=== PATIENT | male | born 1975 | race Caucasian/White ===

== ENCOUNTER → 2023-03-12 08:32 | Outpatient (BNVA) | payer OTHER, SELFPAY | PROVIDERS: Family Provider Family Medicine; PCP Family Medicine; Visit Provider Family Medicine | DX: E53.8 Deficiency of other specified B group vitamins (principal); R53.83 Other fatigue; R53.81 Other malaise; Z13.220 Encounter for screening for lipoid disorders; E55.9 Vitamin D deficiency, unspecified | CPT/HCPCS: 80053; 80061; 82306; 82607; 84443; 85025 ==

== ENCOUNTER 2024-07-04 09:19 | Emergency (ER) | payer OTHER, SELFPAY ==
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
[2024-07-04 09:25] VITALS: BP 148/83; PULSE 71; RESP 20; TEMP 36.6; O2SAT 97
[2024-07-04] MEDS: tetanus-dipt-pertussis 0.5 mL SDV IM (09:50)
[2024-07-04] MEDS: ceFAZolin 2,000 mg SDV 2000 MG IVP (09:50)
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
[2024-07-04 10:27] VITALS: BP 140/73; PULSE 81; O2SAT 98
--- NOTE | 2024-07-05 08:52 | DCPLANNER ---
messaged ortho for er f/u
== END 2024-07-04 10:33 | disposition home or self-care (01) ==
PROVIDERS: Emergency Provider Emergency Medicine; Family Provider Family Medicine; PCP Family Medicine
DX: S61.411A Laceration without foreign body of right hand, initial encounter (principal); X58.XXXA Exposure to other specified factors, initial encounter
CPT/HCPCS: 12002; 73130; 90471; 90715; 96374; 99284; J0690

== ENCOUNTER 2024-12-25 07:25 | Observation (INO) | payer OTHER, SELFPAY ==
[2024-12-25] VITALS (17 sets, daily range): BP systolic 112–182; BP diastolic 58–105; PULSE 79–96; RESP 15–19; TEMP 36.6–37.6; O2SAT 95–100; BMI 27.8
--- NOTE | 2024-12-25 07:50 | CTR_ITS ---
PROCEDURE INFORMATION: Exam: CT Pelvis With Contrast Exam date and time: 12/25/2024 8:02 AM Age: 49 years old Clinical indication: Other: Perirectal abscess; Perianal pain; Additional info: Perirectal abscess anterior TECHNIQUE: Imaging protocol: Computed tomography of the pelvis with contrast. Radiation optimization: All CT scans at this facility use at least one of these dose optimization techniques: automated exposure control; mA and/or kV adjustment per patient size (includes targeted exams where dose is matched to clinical indication); or iterative reconstruction. Contrast material: OMNIPAQUE 350; Contrast volume: 100 ml; Contrast route: INTRAVENOUS (IV); COMPARISON: No relevant prior studies available. RADIATION DOSE METRICS: Total DLP (mGy-cm): 397.3 FINDINGS: Intestine: Visualized small and large intestine are unremarkable. There is an ill-defined fluid in the right perianal region measuring 3.1 x 2.6 x 1.7 cm with surrounding fat stranding. No organized rim enhancing collection. Appendix: No evidence of appendicitis. Intraperitoneal space: Unremarkable. No free air. No significant fluid collection. Vasculature: There are numerous benign phleboliths in the pelvis. Lymph nodes: Unremarkable. No enlarged lymph nodes. Reproductive: Normal as visualized. Urinary bladder: Normal. No mass. Bones/joints: There are mild degenerative changes of the sacroiliac joints. There are mild degenerative changes of the hip joints. The pubic symphysis demonstrates mild degenerative changes. Soft tissues: Unremarkable. CT/CT pelvis w con* [id number] IMPRESSION: Right perianal phlegmon with no rim enhancing collections to suggest organized abscess.
--- NOTE | 2024-12-25 07:51 | ED_ITS ---
HPI - Wound/Laceration 2 General: Chief Complaint: Wound/Laceration Stated Complaint: abscess on tailbone Time Seen by Provider: 12/25/24 07:28 History of Present Illness: 49-year-old male presents emergency room with complaint of swollen painful area on the perineum. He noticed a what he describes as a pimple that began on the perineal area he scratched at it tried to express contents at home about a week ago it began to get worse. He was seen via telemedicine last night states he showed them a picture of the area of concern and he was started on cephalexin. He has not had any fever but is having increased perineal pain. Associated symptoms: Denies chills or fever(s) Related Data Home Medications ?Medication ?Instructions ?Recorded ?Confirmed loratadine 10 mg capsule 10 mg PO DAILY PRN allergies 06/06/20 07/20/24 multivitamin 1 tab PO DAILY 09/05/2307/02 fluticasone propionate 50 2 spray intranasal DAILY PRN 07/04/24 07/20/24 mcg/actuation nasal allergies spray,suspension (Flonase Allergy Relief) albuterol sulfate 90 mcg/actuation 2 puff inhalation Q 4H PRN 12/25/24 12/25/24 aerosol inhaler Shortness Of Breath Or Wheez ing anastrozole 1 mg tablet 1 mg PO Q7D 12/25/24 5 cephalexin 500 mg capsule 500 mg PO QID 12/25/2412/25 Previous Rx's ?Medication ?Instructions ?Recorded simvastatin 10 mg tablet 10 mg PO DAILY #90 tabs 10/30 04/24 Allergies Allergy/AdvReac Type Severity Reaction Status Date / Time No Known Allergies Allergy Verified 07/20/24 08:10 Review of Systems 2 Const: Denies: fever(s) or chills Card: Denies: chest pain Resp: Denies: dyspnea GI: Denies: abdominal pain : Denies: dysuria, urinary frequency or urinary urgency Musc: Denies: neck pain or back pain Skin/Breast: Denies: rash PFSH ED 2 PFSH: Medical History High cholesterol Surgical History History of open reduction and internal fixation (ORIF) procedure Family History Denies family history of Diabetes CAD (coronary artery disease) Cancer Hypertension Stroke Social History Smoking and tobacco/nicotine status: never used tobacco/nicotine Alcohol intake: never Substance/Drug Use: never Current occupational status: employed Current occupation: [employer] Physical Exam 2 Const: COMMON NORMALS: no acute distress GENERAL APPEARANCE: cooperative and comfortable ORIENTATION/CONSCIOUSNESS: Yes awake, Yes oriented to person, Yes oriented to place and Yes oriented to time HENMT: COMMON NORMALS: normocephalic, atraumatic and hearing grossly normal bilaterally HEAD & SCALP: normocephalic and atraumatic Resp: COMMON NORMALS: normal respiratory effort, No retractions, No use of accessory muscles and clear to auscultation bilaterally AUSCULTATION: clear to auscultation bilaterally Cardio: COMMON NORMALS: regular rate, regular rhythm and No murmurs present (Cardio) RATE: regular rate RHYTHM: regular rhythm GI: COMMON NORMALS: Soft to palpation and No hepatosplenomegaly present A USCULTATION: Yes normoactive bowel sounds PALPATION: Yes Soft to palpation, No Tenderness to palpation present (GI), No Guarding due to palpation present (GI) and Yes No hepatosplenomegaly present : OTHER: Examination the perineal area. Anterior portion of the rectum to the right of the midline there is a tender fluctuant area mildly reddened. No active bleeding or drainage Extremity: COMMON NORMALS: normal to inspection, capillary refill normal, no clubbing, cyanosis or edema, no calf tenderness and no pedal edema Neuro: SENSORIUM/ORIENTATION: Yes oriented to person, Yes oriented to place and Yes oriented to time Skin: COMMON NORMALS: no rashes or lesions noted GENERAL SKIN EXAM: no rashes or lesions noted Course 2 Vital Signs: Vital signs: Vital Signs Temperature 97.8 F 12/25/24 07:28 Pulse Rate 94 12/25/24 08:20 Respiratory Rate 18 12/25/24 07:28 Blood Pressure 182/105 12/25/24 07:28 Pulse Oximetry 97 12/25/24 08:20 Oxygen Delivery Me thod Room Air 12/25/24 08:20 MDM - Wound/Laceration Medical Decision Making 3 x 2 x 1.7 cm developing abscess. Cultures done will give patient Zosyn in the emergency room and placed on observation he ate prior to coming in this morning. Discussed with the general surgeon they will take surgery for incision and drainage. Medical Records I reviewed the patient's medical records. Lab Data I reviewed the patient's lab results. 12/25/24 07:48 12/25/24 07:[address] 12/25/24 07:50 IMPRESSION: Right perianal phlegmon with no rim enhancing collections to suggest organized abscess. Laboratory Results WBC 16.14 10^3/uL (3.29-11.43) H 12/25/24 07:48 RBC 5.01 10^6/uL (3.85-5.65) 12/25/24 07:48 Hgb 14.70 g/dL (11.27-16.99) 12/25/24 07:48 Hct 44.9 % (37-53) 12/25/24 07:48 MCV 89.6 fl (82-101) 12/25/24 07:48 MCH 29.3 pg (27-33) 12/25/24 07:48 MCHC 32.7 g/dL (30-55) 12/25/24 07:48 RDW 14.2 % (12.1-15.1) 12/25/24 07:48 Plt Count 212 10^3/cmm (157-399) 12/25/24 07:48 MPV 10.6 fL (7.4-10.4) H 12/25/24 07:48 Neut % (Auto) 79.9 % 12/25/24 07:48 Lymph % (Auto) 9.4 % 12/25/24 07:48 [place] % (Auto) 9.6 % 12/25/24 07:48 Eos % (Auto) 0.6 % 12/25/24 07:48 Baso % (Auto) 0.2 % 12/25/24 07:48 Neut # (Auto) 12.89 10^3/uL (1.8-7.7) H 12/25/24 07:48 Lymph # (Auto) 1.5 10^3/uL (0.8-4.8) 12/25/24 07:48 [place] # (Auto) 1.6 10^3/uL (0.2-0.9) H 12/25/24 07:48 Eos # (Auto) 0.1 10^3/uL (0.0-0.8) 12/25/24 07:48 Baso # (Auto) 0.0 10^3/uL (0.0-0.1) 12/25/24 07:48 Nucleated RBC % (auto) 0 % 12/25/24 07:48 Nucleated RBCs # 0.0 /100WBC 12/25/24 07:48 Sodium 137 mmol/L (136-145) 12/25/24 07:48 Potassium 4.1 mmol/L (3.5-5.1) 12/25/24 07:48 Chloride 101 mmol/L (98-107) 12/25/24 07:48 Carbon Dioxide 27 mmol/L (22-29) 12/25/24 07:48 Anion Gap 13.1 (5-19) 12/25/24 07:48 BUN 12 mg/dL (6-20) 12/25/24 07:48 Creatinine 0.9 mg/dL (0.7-1.2) 12/25/24 07:48 GFR Calculation 89.0 mL/min (90-130) L 12/25/24 07:48 Glucose 183 mg/dL (65-115) H 12/25/24 07:48 Calculated Osmolality 288 mOsm/kg (285-295) 12/25/24 07:48 Calcium 8.7 mg/dL (8.5-10.5) 12/25/24 07:48 Total Bilirubin 0.4 mg/dL (0.15-1.2) 12/25/24 07:48 AST 20 U/L (0-40) 12/25/24 07:48 ALT 20 U/L (0-41) 12/25/24 07:48 Alkaline Phosphatase 64 U/L (40-130) 12/25/24 07:48 Total Protein 6.7 g/dL (6.6-8.7) 12/25/24 07:48 Albumin 3.8 g/dL (3.5-5.2) 12/25/24 07:48 Globulin 2.9 g/dL (1.3-4.6) 12/25/24 07:48 All radiology interpretation(s) finalized by discharge Discharge Plan Discharge Patient Disposition: Placed in Observation Clinical Impression: Abscess, perianal Condition: Stable Prescriptions: No Action loratadine 10 mg capsule 10 mg PO DAILY PRN (Reason: allergies) multivitamin Tablet 1 tab PO DAILY simvastatin 10 mg tablet 10 mg PO DAILY Qty: 90 3RF fluticasone propionate [Flonase Allergy Relief] 50 mcg/actuation spray,suspension 2 spray intranasal DAILY PRN (Reason: allergies) Rx Instructions: administer into each nostril anastrozole 1 mg tablet 1 mg PO Q7D cephalexin 500 mg capsule 500 mg PO QID albuterol sulfate 90 mcg/actuation HFA aerosol inhaler 2 puff INHALATION Q4H PRN (Reason: Shortness Of Breath Or Wheezing) Referrals: Riccardo Roa MD [Primary Care Provider] - Patient Instructions: Opioid Safety, Pain Management Print Language: Nepalese Coding Level of Care Code ED Registered Respiratory Technician for Nima French
[2024-12-25] MEDS: iohexol 350 mg/mL 500 mL Btl (per mL) IV (08:07)
[2024-12-25 08:16] LABS: Basophils % 0.2 %; Eosinophils # 0.1 10^3/uL (0.0-0.8); Eosinophils % 0.6 %; Hematocrit 44.9 % (37-53); Lymphocytes # 1.5 10^3/uL (0.8-4.8); Lymphocytes % 9.4 %; Mean Corpuscular HGB Conc 32.7 g/dL (30-55); Mean Corpuscular Hemoglobin 29.3 pg (27-33); Mean Corpuscular Volume 89.6 fl (82-101); Mean Platelet Volume 10.6 fL (7.4-10.4); Monocytes # 1.6 10^3/uL (0.2-0.9); Monocytes % 9.6 %; Neutrophils # 12.89 10^3/uL (1.8-7.7); Neutrophils % 79.9 %; Nucleated Red Blood Cells % 0 %; Platelet Count 212 10^3/cmm (157-399); Red Blood Count 5.01 10^6/uL (3.85-5.65); Red Cell Distribution Width 14.2 % (12.1-15.1); White Blood Count 16.14 10^3/uL (3.29-11.43)
[2024-12-25 08:17] LABS: Alanine Aminotransferase 20 U/L (0-41); Albumin Level 3.8 g/dL (3.5-5.2); Alkaline Phosphatase 64 U/L (40-130); Anion Gap 13.1 (5-19); Aspartate Amino Transferase 20 U/L (0-40); Blood Urea Nitrogen 12 mg/dL (6-20); Calcium 8.7 mg/dL (8.5-10.5); Carbon Dioxide 27 mmol/L (22-29); Chloride 101 mmol/L (98-107); Creatinine Clr Calc Pharmacy 101.2221; Globulin 2.9 g/dL (1.3-4.6); Glucose 183 mg/dL (65-115); Osmolality Calculated 288 mOsm/kg (285-295); Potassium 4.1 mmol/L (3.5-5.1); Sodium 137 mmol/L (136-145); Total Bilirubin 0.4 mg/dL (0.15-1.2); Total Protein 6.7 g/dL (6.6-8.7)
[2024-12-25] MEDS: piperacillin-tazobactam 3.375 GM in sodium chloride 0.9% (plus) 50 ML IV ×2 (09:06→22:56)
[2024-12-25] MEDS: morphine 4 mg/mL SDV 1 mL IVP (09:25)
[2024-12-25] MEDS: ketorolac 30 mg/mL INJ IVP (09:25)
[2024-12-25] MEDS: ondansetron 2 mg/ML SDV 2 mL 4 MG IVP (09:25)
--- NOTE | 2024-12-25 09:32 | PM.HP ---
Providers/Chief Complaint Admitting Physician: Michael Rosales MD Primary Care Provider: Riccardo Roa MD Chief Complaint: abscess on tailbone History of Present Illness Anatoliy Woody is a 49 year old male Who presents to the hospital with possible perianal abscess. Currently patient has been dealing with a boil in the perianal area that was supinating for about A week, he was started on cephalexin with no significant improvement. Upon arrival to the emergency department his white count was 16 complaining of significant pain in the perianal region. Review of Systems General: Reports: 10 or more systems reviewed and unremarkable except in HPI and below Medications/Allergies Home Medications ?Medication ?Instructions ?Recorded ?Confirmed ?Last Taken ?Type loratadine 10 mg capsule 10 mg PO DAILY PRN allergies 06/06/20 12/25/24 Unknown History multivitamin 1 tab PO DAILY 09/05/23 12/25/24 12/24/24 History fluticasone propionate 50 2 spray intranasal DAILY PRN 07/04/24 12/25/24 Unknown History mcg/actuation nasal allergies spray,suspension (Flonase Allergy Relief) Estrodim 2 cap PO DAILY 12/25/24 12/25/24 12/24/24 History Lipitrol Ox 2 cap PO DAILY 12/25/24 12/25/24 12/24/24 History acetaminophen 500 mg tablet 1,000 mg PO Q6H PRN Fever Or Pain 12/25/24 12/25/24 12/24/24 History (Tylenol Extra Strength) albuterol sulfate 90 mcg/actuation 2 puff inhalation Q4H PRN 12/25/24 12/25/24 Unknown History aerosol inhaler Shortness Of Breath Or Wheezing anastrozole 1 mg tablet 1 mg PO Q7D 12/25/24 12/25/24 Unknown History cephalexin 500 mg capsule 500 mg PO QID 12/25/24 12/25/24 12/24/24 21:00 History ibuprofen 200 mg tablet (Advil) 400 - 600 mg PO Q6H PRN Fever Or 12/25/24 12/25/24 12/24/24 History Pain testosterone cypionate 200 mg/mL See Rx Instructions .Route .COMPLEX 12/25/24 12/25/24 12/23/24 History intramuscular syringe vitamin A 2,400 mcg capsule 2,400 mcg PO DAILY 12/25/24 12/25/24 Unknown History vitamin D3 250 mcg (10,000 1 cap PO DAILY 12/25/24 12/25/24 Unknown History unit)-vitamin K2 45 mcg capsule Allergies Allergy/AdvReac Type Severity Reaction Status Date / Time No Known Allergies Allergy Verified 07/20/24 08:10 PFSH Acute PFSH: Medical History High cholesterol Surgical History History of open reduction and internal fixation (ORIF) procedure Family History Denies family history of Diabetes CAD (coronary artery disease) Cancer Hypertension Stroke Social History Smoking and tobacco/nicotine status: never used tobacco/nicotine Alcohol intake: never Substance/Drug Use: never Current occupational status: employed Current occupation: [email or web address] Vitals/I&O/Wt Last Vital Signs Temp 97.8 F 12/25/24 07:28 Pulse 94 12/25/24 08:20 Resp 18 12/25/24 07:28 BP 182/105 12/25/24 07:28 Pulse Ox 97 12/25/24 08:20 O2 Del Method Room Air 12/25/24 08:20 12/24/24 12/25/24 12/25/24 22:59 06:59 14:59 Intake Total 50 / 50 Balance 50 / 50 Weight last 48 hrs Weight 180 lb Physical Exam GI: OTHER: Abdominal signs benign. In-depth very anal region in the right anterior aspect of the anus there is an area of inflammation and fluctuance consistent with a perianal abscess. Data 12/25/24 07:48 12/25/24 07:48 Micro: Microbiology 12/25/24 07:48 Blood Culture - Preliminary Blood SPECIMEN COLLECTED 12/25/24 07:45 Blood Culture - Preliminary Blood SPECIMEN COLLECTED A&P Assessment and plan (1) Abscess, perianal: Plan 49-year-old male with perianal abscess. White count 16, CAT scan show evidence of phlegmonous changes but cannot identify a drainable collection. Per clinical evaluation he does have fluctuance and therefore there is a drainable collection underneath. Patient will benefit from incision and drainage and not couple of doses of IV antibiotics. Since he had breakfast this morning we will plan to proceed once he is n.p.o. around 2 PM. I discussed all recent benefits of the procedure including the risk of bleeding, infection, need for additional interventions, recurrent abscess, fistula formation. He shows understanding agrees with the plan. PDMP PDMP Reviewed: Not Reviewed Attestations Medical Necessity Statement*: For discharge after surgery or early in the morning tomorrow depending on perioperative findings. Coding Level of Care Code Acute Code for Chg Fwd Diagnoses Abscess, perianal K61.0
[2024-12-25] MEDS: ketorolac 30 mg/mL INJ 15 MG IVP ×3 (12:12→22:57)
--- NOTE | 2024-12-25 13:45 | P.ANESASSM_ITS ---
Pre-Anesthetic Assessment Height/Weight: Height 1.73 m Weight 83.053 kg Temp Pulse Resp BP Pulse Ox O2 Del Method 99.6 F 88 17 120/70 97 Room Air 12/25/24 13:20 12/25/24 13:20 12/25/24 13:20 12/25/24 13:20 12/25/24 13:20 12/25/24 13:20 Preop Diagnosis: perianal abcess Operation Date: 12/25/24 14:10 Proposed Procedures p Incision And Drainage Incision And Drainage Perianal Abscess(Not Applicable) - Michael Rosales MD Familial anesthetic complications: none Was Beta Clint taken within 24 hours: N/A Was Clonidine taken within 24 hours: N/A Last intake: Intake Last Solid Date 12/25/24 Social No alcohol and No tobacco Exam alert, oriented x 3, clear to auscultation bilaterally and regular rate & rhythm Airway Mallampati: Class I Dentition: full History/ROS No significant history except as noted Pulmonary None reported CV/HEM None reported None reported Hepatic None reported GI None reported Metabolic None reported Musc/skel None reported Neuropsych None reported Anesthetic Plan ASA status: 1 Anesthesia: Anesthesia Evaluation and General Risk of > 500 ml blood loss (7ml/kg in children): No Medications/Allergies Home Medications ?Medication ?Instructions ?Recorded ?Confirmed ?Last Taken ?Type loratadine 10 mg capsule 10 mg PO DAILY PRN allergies 06/06/20 12/25/24 Unknown History multivitamin 1 tab PO DAILY 09/05/2312/0112/24/24 History fluticasone propionate 50 2 spray intranasal DAILY PRN 07/04/24 12/25/24 Unknown History mcg/actuation nasal allergies spray,suspension (Flonase Allergy Relief) Estrodim 2 cap PO DAILY 12/25/2412/0112/24/24 History Lipitrol Ox 2 cap PO DAILY 12/25/2412/0112/24/24 History acetaminophen 500 mg tablet 1,000 mg PO Q6H PRN Fever Or Pain 12/25/24 12/25/24 12/24/24 History (Tylenol Extra Strength) albuterol sulfate 90 mcg/actuation 2 puff inhalation Q 4H PRN 12/25/24 12/25/24 Unknown History aerosol inhaler Shortness Of Breath Or Wheez ing anastrozole 1 mg tablet 1 mg PO Q7D 12/25/24 5 Unknown History cephalexin 500 mg capsule 500 mg PO QID 12/25/2412/2512/24/24 21:00 History ibuprofen 200 mg tablet (Advil) 400 - 600 mg PO Q6H MS N Fever Or 12/25/24 12/25/24 12/24/24 History Pain testosterone cypionate 200 mg/mL See Rx Instructions . Route .COMPLEX 12/25/24 12/25/24 12/23/24 History intramuscular syringe vitamin A 2,400 mcg capsule 2,400 mcg PO DAILY 5 12/25/24 Unknown History vitamin D3 250 mcg (10,000 1 cap PO DAILY 12/25/24 Unknown History unit)-vitamin K2 45 mcg capsule Allergies Allergy/AdvReac Type Severity Reaction Status Date / Time No Known Allergies Allergy Verified 07/20/24 08:10 Current Medications Generic Name Dose Route Start Last Admin Trade Name Freq PRN Reason Stop Dose Admin Ketorolac Tromethamine 15 mg 12/25/24 09:46 12/25/24 12:12 Ketorolac 30 Mg/Ml Inj IVP 12/30/24 09:45 15 mg Q6H BELKIS Administration [facility] Anesthesia Medical History High cholesterol Surgical History History of open reduction and internal fixation (ORIF) procedure Family History Denies family history of Diabetes CAD (coronary artery disease) Cancer Hypertension Stroke Social History Smoking and tobacco/nicotine status: never used tobacco/nicotine Alcohol intake: never Substance/Drug Use: never Current occupational status: employed Current occupation: [employer] Anesthesia 12/25/24 07:48 12/25/24 07:48 Short CBC 12/25/24 Range/Units 07:48 WBC 16.14 H (3.29-11.43) 10^3/uL Hgb 14.70 (11.27-16.99) g/dL Hct 44.9 (37-53) % MCV 89.6 (82-101) fl Plt Count 212 (157-399) 10^3/cmm Neut % (Auto) 79.9 % Neut # (Auto) 12.89 H (1.8-7.7) 10^3/uL BMP 12/25/24 07:48 Sodium 137 Potassium 4.1 Chloride 101 Carbon Dioxide 27 BUN 12 Creatinine 0.9 Glucose 183 H Calcium 8.7 Liver Function 12/25/24 Range/Units 07:48 Total Bilirubin 0.4 (0.15-1.2) mg/dL AST 20 (0-40) U/L ALT 20 (0-41) U/L Alkaline Phosphatase 64 (40-130) U/L Albumin 3.8 (3.5-5.2) g/dL Microbiology 12/25/24 07:48 Blood Culture - Preliminary Blood SPECIMEN COLLECTED 12/25/24 07:45 Blood Culture - Preliminary Blood SPECIMEN COLLECTED Cardiac Studies: 2 No Data to Display
--- NOTE | 2024-12-25 14:16 | PC.NURSE ---
This nurse gave report to RINKU Ortiz
--- NOTE | 2024-12-25 14:26 | P.OP_ITS ---
Operative Report Date of procedure: December 25, 2024 Pre-op diagnosis: Perianal abscess Post-op diagnosis: Same Post-op findings: Perianal abscess on the right anterolateral direction about 2 cm from the anal margin. Abscess drained 5cc of purulent material Procedure done: incision and drainage of perianal abscess Specimens removed/disposition: Swabs for cultures Surgeon: Michael Rosales MD Supervisor Phosphorus Processing: FAISAL OR STaff Estimated blood loss: 5 Complications: none Brief History: This is a 49-year-old male who is here for evaluation for perianal abscess. After discussion of all risk benefits documented in my preop note we decided to proceed to the OR for I&D Procedure: Patient was brought into the OR, he was placed in a prone position, the perianal region was prepped and draped in the usual sterile fashion. A timeout was conducted. I then proceeded to then divide the area of maximum fluctuance located in the right anterior aspect of the perianal region about 2 cm from the anal edge. I made 1.5 cm incision with an 11 blade. The abscess cavity was immediately access. Cultures were taken. About 5 cc of purulence was drained. I then proceeded to use a hemostat and my finger to break all loculations. The wound was then profusely irrigated with saline. I then achieved hemostasis with electrocautery. The wound was then packed with quarter inch iodoform packing. A rectal exam was done at the end of the procedure and no evidence of induration or drainage from the anal canal was noted.
--- NOTE | 2024-12-25 15:05 | ANE.PACU2 ---
Inpatient post-anesthesia follow up: Airway intact: Yes Vital signs: Temperature 98.5 F Pulse Rate 75 Respiratory Rate 18 Blood Pressure 161/68 Pulse Oximetry 95 Oxygen Delivery Me thod Room Air Oxygen Flow Rate 6 Fraction of Inspir ed Oxygen Hydration adequate: Yes Nausea and vomiting: No Pain level: 1 Mental status: Baseline
[2024-12-26] VITALS: BP 133/68; PULSE 80; RESP 16; TEMP 36.8
[2024-12-26 03:21] VITALS: BP 111/64; PULSE 77; RESP 17; TEMP 37; O2SAT 96
[2024-12-26] MEDS: ketorolac 30 mg/mL INJ 15 MG IVP (05:09)
[2024-12-26] MEDS: piperacillin-tazobactam 3.375 GM in sodium chloride 0.9% (plus) 50 ML IV (06:09)
[2024-12-26 07:41] VITALS: BP 161/68; PULSE 75; RESP 18; TEMP 36.9; O2SAT 95
--- NOTE | 2024-12-26 08:46 | PM.DCS ---
Discharge Providers Date of Admission: 12/25/24 08:32 Date of Discharge: December 26, 2024 Attending Provider at Admission: Michael Rosales MD Attending Provider at Discharge: Michael Rosales MD Primary Care Provider: Riccardo Roa MD Diagnoses at Discharge Discharge Diagnosis (1) Abscess, perianal: Status: Acute Reason for Visit Reason for Visit: abscess on [facility] Course Hospital Course 49-year-old male with a perianal abscess who presented to our emergency department, he was taken to the OR for incision and drainage. Procedure was done without complications. Patient remained in the house Overnight for IV antibiotics, this morning the wound appears healthy no evidence of further purulence packing instructions were given to family member Physical Exam GI: OTHER: Perianal region with 1.5 cm surgical incision packing was removed with no evidence of purulence wound was repacked family number was instructed Discharge Data Studies Completed and Pending Completed Studies During Hospitalization Category Date Time Status CT pelvis w con* [id number] Stat Cat Scan 12/25/24 07:50 Completed Pending at discharge Category Date Time Status Abscess Culture and Gram Stain Routine Lab 12/25/24 14:08 Results Anaerobic Culture Routine Lab 12/25/24 14:08 Results Blood Culture Stat Lab 12/25/24 07:48 Results Radiology Impressions Pelvis CT 12/25/24 07:50 IMPRESSION: Right perianal phlegmon with no rim enhancing collections to suggest organized abscess. Laboratory Results WBC 16.14 10^3/uL (3.29-11.43) H 12/25/24 07:48 RBC 5.01 10^6/uL (3.85-5.65) 12/25/24 07:48 Hgb 14.70 g/dL (11.27-16.99) 12/25/24 07:48 Hct 44.9 % (37-53) 12/25/24 07:48 MCV 89.6 fl (82-101) 12/25/24 07:48 MCH 29.3 pg (27-33) 12/25/24 07:48 MCHC 32.7 g/dL (30-55) 12/25/24 07:48 RDW 14.2 % (12.1-15.1) 12/25/24 07:48 Plt Count 212 10^3/cmm (157-399) 12/25/24 07:48 MPV 10.6 fL (7.4-10.4) H 12/25/24 07:48 Neut % (Auto) 79.9 % 12/25/24 07:48 Lymph % (Auto) 9.4 % 12/25/24 07:48 Brooke % (Auto) 9.6 % 12/25/24 07:48 Eos % (Auto) 0.6 % 12/25/24 07:48 Baso % (Auto) 0.2 % 12/25/24 07:48 Neut # (Auto) 12.89 10^3/uL (1.8-7.7) H 12/25/24 07:48 Lymph # (Auto) 1.5 10^3/uL (0.8-4.8) 12/25/24 07:48 Brooke # (Auto) 1.6 10^3/uL (0.2-0.9) H 12/25/24 07:48 Eos # (Auto) 0.1 10^3/uL (0.0-0.8) 12/25/24 07:48 Baso # (Auto) 0.0 10^3/uL (0.0-0.1) 12/25/24 07:48 Nucleated RBC % (auto) 0 % 12/25/24 07:48 Nucleated RBCs # 0.0 /100WBC 12/25/24 07:48 Sodium 137 mmol/L (136-145) 12/25/24 07:48 Potassium 4.1 mmol/L (3.5-5.1) 12/25/24 07:48 Chloride 101 mmol/L (98-107) 12/25/24 07:48 Carbon Dioxide 27 mmol/L (22-29) 12/25/24 07:48 Anion Gap 13.1 (5-19) 12/25/24 07:48 BUN 12 mg/dL (6-20) 12/25/24 07:48 Creatinine 0.9 mg/dL (0.7-1.2) 12/25/24 07:48 GFR Calculation 89.0 mL/min (90-130) L 12/25/24 07:48 Glucose 183 mg/dL (65-115) H 12/25/24 07:48 Calculated Osmolality 288 mOsm/kg (285-295) 12/25/24 07:48 Calcium 8.7 mg/dL (8.5-10.5) 12/25/24 07:48 Total Bilirubin 0.4 mg/dL (0.15-1.2) 12/25/24 07:48 AST 20 U/L (0-40) 12/25/24 07:48 ALT 20 U/L (0-41) 12/25/24 07:48 Alkaline Phosphatase 64 U/L (40-130) 12/25/24 07:48 Total Protein 6.7 g/dL (6.6-8.7) 12/25/24 07:48 Albumin 3.8 g/dL (3.5-5.2) 12/25/24 07:48 Globulin 2.9 g/dL (1.3-4.6) 12/25/24 07:48 Vitals Last Vital Signs Temp 98.5 F 12/26/24 07:41 Pulse 75 12/26/24 07:41 Resp 18 12/26/24 07:41 BP 161/68 12/26/24 07:41 Pulse Ox 95 12/26/24 07:41 O2 Del Method Room Air 12/26/24 07:41 O2 Flow Rate 6 12/25/24 14:43 Discharge Plan Discharge Patient Disposition: Home Condition: Stable Prescriptions: New amoxicillin-pot clavulanate 875-125 mg tablet 1 tab PO BID 7 Days Qty: 14 0RF meloxicam 7.5 mg tablet 7.5 mg PO DAILY Qty: 5 0RF Continued loratadine 10 mg capsule 10 mg PO DAILY PRN (Reason: allergies) multivitamin Tablet 1 tab PO DAILY fluticasone propionate [Flonase Allergy Relief] 50 mcg/actuation spray,suspension 2 spray intranasal DAILY PRN (Reason: allergies) Rx Instructions: administer into each nostril anastrozole 1 mg tablet 1 mg PO Q7D albuterol sulfate 90 mcg/actuation HFA aerosol inhaler 2 puff INHALATION Q4H PRN (Reason: Shortness Of Breath Or Wheezing) vitamin A 2,400 mcg Capsule 2,400 mcg PO DAILY acetaminophen [Tylenol Extra Strength] 500 mg Tablet 1,000 mg PO Q6H PRN (Reason: Fever Or Pain) vitamin D3-vitamin K2 250 mcg (10,000 unit)-45 mcg Capsule 1 cap PO DAILY testosterone cypionate 200 mg/mL Syringe See Rx Instructions .ROUTE .COMPLEX Rx Instructions: inject 0.5 mg subcutaneously twice weekly (Friday am Pm ) Estrodim 2 cap PO DAILY Lipitrol Ox 2 cap PO DAILY Discontinued cephalexin 500 mg capsule 500 mg PO QID ibuprofen [Advil] 200 mg Tablet 400 - 600 mg PO Q6H PRN (Reason: Fever Or Pain) Discharge Orders: Discharge Order (Routine); Ordered 12/26/24 Ordered By: Michael Rosales Referrals: Michael Rosales MD [Physician] - (01/05/25) Riccardo Roa MD [Primary Care Provider] - Discharge Diet: Advance as tolerated Discharge Activity: Resume usual activity Patient Instructions: Acute Wound Care (DC), Opioid Safety, Post Anesthesia Care, Pain Management Activity Restrictions/Additional Instructions: continue daily packin of your wound for 1 week, after this time you can remove packing and do sitz baths. return to the hospital if you see more swelling, redness, pain and discharge. Discharge Attestations Time Spent in Discharge Care*: less than 30 min Quality Metrics Clinical Quality Measures [ No reported AMI, CVA or VTE this stay] Coding Level of Care Code Acute Code for Chg Fwd Diagnoses Abscess, perianal K61.0
--- NOTE | 2024-12-26 09:57 | PC.NURSE ---
Discharge Note Patient discharged to home via private vehicle accompanied by . Discharge instructions reviewed with patient and/or utility sales representative. Mobile pharmacy medications and/or prescriptions provided. Belongings/home medications returned. Educated patient on dressing change and sitz bath as well as taking medication until complete.
[2024-12-26 10:02] VITALS: BP 161/68; PULSE 75; RESP 18; TEMP 36.9; O2SAT 95
--- NOTE | 2024-12-26 10:03 | PC.NURSE ---
Returned patients wallet and wedding ring to him that was locked in the pyxis. Signed returned belongings document placed in chart.
== END 2024-12-26 10:04 | disposition home or self-care (01) ==
LOC: ER 09:11 → MEDSURG 09:18
PROVIDERS: Admitting Provider Surgery; Emergency Provider Family Medicine; Family Provider Family Medicine; PCP Family Medicine; Visit Provider Surgery
PROC: (CPT 46050; principal; 2024-12-25 14:00)
DX: K61.0 Anal abscess (principal); E78.5 Hyperlipidemia, unspecified
CPT/HCPCS: 46050; 72193; 80053; 85025; 87040; 87070; 87075; 87077; 87186; 87205; 96365; 99285; G0378; J1100; J1885; J2250; J2270; J2405; J2543; J2704; J3010; J9999